=== PATIENT | female | born 1985 | race African-American/Black ===

== ENCOUNTER 2019-05-24 09:02 | Emergency (ER) | payer OTHER ==
[~2019-05-24] VITALS: Ht 144.8 cm; Wt 62.6 kg
[2019-05-24 10:14] LABS: PLATELET COUNT 175 K/uL (152-353)
[2019-05-24 10:21] LABS: POTASSIUM 3.7 mmol/L (3.6-5.2)
[2019-05-24 12:35] VITALS: BP 103/61; TEMP 98.1
== END 2019-05-24 12:45 | disposition home or self-care (01) ==
LOC: ED 09:02
PROVIDERS: Emergency Medicine
DX: J02.0 Streptococcal pharyngitis (principal)
CPT/HCPCS: 36415; 80053; 83605; 85027; 87040; 87502; 87635; 87651; 99283